=== PATIENT | female | born 1955 | race Two or more races ===

== ENCOUNTER 2023-05-22 21:11 | Inpatient (IN) | payer BC, OTHER ==
[~2023-05-22] VITALS: Ht 165.1 cm; Wt 148.1 kg
[2023-05-22] MEDS ORDERED: SODIUM CHLORIDE 0.9% 1,000 ML IV ONE (21:45)
[2023-05-22] MEDS ORDERED: ONDANSETRON HCL 4 MG/2 ML VIAL IM ONE (21:45)
[2023-05-22] MEDS ORDERED: HYDROmorphone HCL 2 MG/ML VL/or syr IM ONE (21:45)
[2023-05-22 21:48] LABS: Basophils # (auto) 0 10 ^3/uL (0-0.2); Basophils % (auto) 0.2 % (0.0-2.0); Eosinophils # (auto) 0 10 ^3/uL (0-0.8); Lymphocytes # (auto) 0.3 10 ^3/uL (0.4-5.4); Mean Corpuscular Hemoglobin 25.3 pg (28.0-32.0); Monocytes # (auto) 0.4 10 ^3/uL (0-1.3); Neutrophils # (auto) 8.9 10 ^3/uL (1.6-8.6); Red Blood Cells 5.83 10^6/uL (4.0-5.20); White Blood Cell 9.6 10^3/uL (4.4-10.8)
[2023-05-22 21:50] LABS: Hemoglobin 14.7 g/dL (12.2-16.2); Lymphocytes % (auto) 3.4 % (10.0-50.0); Monocytes % (auto) 4.2 % (0.0-12.0); Neutrophils % (auto) 92.2 % (37.0-80.0); Red Cell Distribution Width 16.8 % (11.8-14.3)
[2023-05-22] MEDS ORDERED: ACETAMINOPHEN 500 MG TAB PO ONE (22:00)
[2023-05-22 22:05] LABS: Albumin 3.4 g/dL (3.4-5.0); Calcium 8.4 mg/dL (8.5-10.1)
[2023-05-22 22:09] LABS: BUN/Creatinine Ratio 12.2 (10.0-20.0); Bilirubin, Total 1.9 mg/dL (0.2-1.0); Total Protein 7.8 g/dL (6.4-8.2)
[2023-05-22] MEDS ORDERED: IOHEXOL 350 MG/ML 100ML IJ ONE (22:32)
[2023-05-22 22:51] LABS: COVID19 ANTIGEN SOFIA FIA NEGATIVE (NEGATIVE)
[2023-05-22 23:16] LABS: Large Platelets FEW; Platelet Estimate Decreased
[2023-05-22] MEDS ORDERED: KETOROLAC TROMETH 60MG/2ML VIAL IM ONE (23:30)
[2023-05-23] MEDS ORDERED: PANTOPRAZOLE 40 MG/10 ML VIAL INJ IV ONE (02:15)
[2023-05-23] MEDS ORDERED: SODIUM CHLORIDE 0.9% 3,250 ML IV ONE (02:15)
[2023-05-23] MEDS ORDERED: ACETAMINOPHEN 325 MG TAB PO PRN (02:15)
[2023-05-23] MEDS ORDERED: HEPARIN DRIP/D5W 100UNITS/ML 250 ML IV SCH (02:15)
[2023-05-23] MEDS ORDERED: HEPARIN SODIUM (PORCINE) 5000 UNITS/ML 1ML VIAL IV ONE (02:15)
[2023-05-23] MEDS ORDERED: NITROGLYCERIN 0.4 MG SL TAB SL PRN ×2 (02:15→05:15)
[2023-05-23] MEDS ORDERED: ASPirin 81 mg TAB PO ONE (02:15)
[2023-05-23] MEDS ORDERED: ATORVASTATIN 20 MG TAB PO ONE (02:15)
[2023-05-23 02:35] LABS: Blood Alcohol < 3.0 mg/dL (<10)
[2023-05-23 02:39] LABS: Cholesterol 112 mg/dL (< 200); HDL Cholesterol 64 mg/dL (40-59); LDL Cholesterol 49 mg/dL (< 100); Triglycerides 73 mg/dL (< 150)
[2023-05-23 03:00] VITALS: PULSE 103; RESP 17; O2SAT 94
[2023-05-23 03:44] LABS: INR 1.36 (0.9-1.15); Partial Thromboplastin Time 37.9 SEC (24.5-34.5)
[2023-05-23] MEDS ORDERED: POTASSIUM CHL 20MEQ/100ML 100 ML IV ONE (04:01)
[2023-05-23] MEDS ORDERED: ONDANSETRON HCL 4 MG/2 ML VIAL IV PRN (05:15)
[2023-05-23] MEDS ORDERED: MORPHINE SULFATE INJ 2 MG/ml SYRG IV PRN (05:15)
[2023-05-23] MEDS: SODIUM CHLOR 0.9% PF (SALINE LOCK) 10ML VIAL/SYR IV SCH ×3 (06:00→22:18)
[2023-05-23 07:40] VITALS: PULSE 99; RESP 24; O2SAT 93
[2023-05-23] MEDS: ACETAMINOPHEN 325 MG TAB PO PRN (08:25)
[2023-05-23] MEDS: POTASSIUM CHL 20MEQ/100ML 100 ML IV SCH ×2 (08:29→08:30)
[2023-05-23 09:25] LABS: Urine Bacteria NONE SEEN /hpf (None Seen); Urine Blood 2+ /uL (Negative); Urine Clarity Clear (Clear); Urine Color Yellow (Yellow); Urine Mucus FEW (None Seen); Urine Protein, UAD 2+ (Negative); Urine WBC 7 /hpf (0 - 5)
[2023-05-23 09:33] LABS: Urine Specific Gravity > 1.050 (1.001-1.035)
[2023-05-23 09:39] LABS: Alcohol, Urine < 3.0 mg/dL (0-10); Amphetamine Screen, Urine NEGATIVE (NEGATIVE); Barbiturate Scree,Urine NEGATIVE (NEGATIVE); Benzodiazephine Screen, Urine NEGATIVE (NEGATIVE); Cannabinoid Screen, Urine NEGATIVE (NEGATIVE); Cocaine Screen, Urine NEGATIVE (NEGATIVE); Opiate Scree,Urine NEGATIVE (NEGATIVE); Phencyclidine Screen, Urine NEGATIVE (NEGATIVE)
[2023-05-23] MEDS ORDERED: ASPirin 81 mg TAB PO SCH (10:00)
[2023-05-23] MEDS ORDERED: METOPROLOL TARTRATE 25 MG TAB PO SCH (10:00)
[2023-05-23] MEDS ORDERED: LISINOPRIL 10 MG TAB PO SCH (10:00)
[2023-05-23] MEDS: PIPERACILLIN-TAZOB 3.375GM 100 ML IV SCH ×2 (10:55→14:21)
[2023-05-23 13:11] LABS: Hepatitis B Surface Antibody Negative (Negative)
[2023-05-23 13:50] LABS: Hepatitis A Total Antibody Negative (Negative)
[2023-05-23 15:16] LABS: Hepatitis B Core Total AB Negative (Negative)
[2023-05-23 15:17] LABS: Hepatitis B Surface Antigen Negative (Negative); Hepatitis C Antibody Negative (Negative)
[2023-05-23] MEDS ORDERED: cefTRIAXone 1GM/50ML D5W 50 ML IV ONE (16:00)
[2023-05-23] MEDS ORDERED: metroNIDAZOLE 500MG/100ML 100 ML IV ONE (16:00)
[2023-05-23 19:30] VITALS: PULSE 95; RESP 13; O2SAT 96
[2023-05-23] MEDS ORDERED: VALS40TA2 PO (20:24)
[2023-05-23] MEDS ORDERED: DORZ2SOL18 EACHEYE (20:24)
[2023-05-23] MEDS ORDERED: ROSU20TA14 PO (20:24)
[2023-05-23] MEDS ORDERED: MELO-335 PO (20:24)
[2023-05-23] MEDS: ATORVASTATIN 20 MG TAB PO SCH (22:32)
[2023-05-23] MEDS: metroNIDAZOLE 500MG/100ML 100 ML IV SCH (23:36)
[2023-05-24] MEDS ORDERED: TEMAZEPAM 15 MG CAP PO ONE (00:45)
[2023-05-24 06:07] LABS: Basophils # (auto) 0 10 ^3/uL (0-0.2); Eosinophils # (auto) 0 10 ^3/uL (0-0.8); Hemoglobin 13.7 g/dL (12.2-16.2); Lymphocytes # (auto) 0.3 10 ^3/uL (0.4-5.4); Monocytes # (auto) 0.6 10 ^3/uL (0-1.3); Monocytes % (auto) 5.3 % (0.0-12.0); Red Cell Distribution Width 17.1 % (11.8-14.3)
[2023-05-24 06:11] LABS: Basophils % (auto) 0.2 % (0.0-2.0); Lymphocytes % (auto) 2.5 % (10.0-50.0); Mean Corpuscular Hemoglobin 25.5 pg (28.0-32.0); Mean Corpuscular Volume 79.7 fL (80.0-100.0); Neutrophils # (auto) 10.6 10 ^3/uL (1.6-8.6); White Blood Cell 11.5 10^3/uL (4.4-10.8)
[2023-05-24] MEDS: SODIUM CHLOR 0.9% PF (SALINE LOCK) 10ML VIAL/SYR IV SCH ×3 (06:17→22:16)
[2023-05-24 06:25] LABS: Albumin 2.9 g/dL (3.4-5.0); BUN/Creatinine Ratio 13.9 (10.0-20.0); Potassium 3.3 mmol/L (3.5-5.1)
[2023-05-24 08:00] VITALS: PULSE 97; RESP 14; O2SAT 96
[2023-05-24] MEDS: metroNIDAZOLE 500MG/100ML 100 ML IV SCH ×3 (08:17→23:11)
[2023-05-24] MEDS ORDERED: PANTOPRAZOLE 40 MG/10 ML VIAL INJ IV ONE (08:45)
[2023-05-24] MEDS: SOD CHL 0.9%/ KCL 20MEQ 1,000 ML IV SCH ×2 (08:45→18:51)
[2023-05-24] MEDS: cefTRIAXone 1GM/50ML D5W 50 ML IV SCH (09:00)
[2023-05-24] MEDS ORDERED: ASPirin 81 mg TAB PO SCH (10:00)
[2023-05-24] MEDS ORDERED: PANTOPRAZOLE 40 MG TAB PO SCH (10:00)
[2023-05-24] MEDS ORDERED: POTASSIUM CHL 20 Meq TABLET PO SCH ×2 (10:00)
[2023-05-24 19:50] VITALS: PULSE 78; RESP 20; O2SAT 100
[2023-05-24] MEDS: ATORVASTATIN 20 MG TAB PO SCH (22:14)
[2023-05-24 22:16] VITALS: BP 133/61; PULSE 97; RESP 18; TEMP 99.9; O2SAT 99
[2023-05-24] MEDS: ACETAMINOPHEN 325 MG TAB PO PRN (22:16)
[2023-05-24 22:17] VITALS: BP 133/61; PULSE 97; RESP 18; TEMP 99.9; O2SAT 99
[2023-05-25] VITALS (8 sets, daily range): BP systolic 94–167; BP diastolic 46–78; PULSE 61–96; RESP 16–54; TEMP 97.9–100.2; O2SAT 86–99
[2023-05-25] MEDS ORDERED: LATA0.008 EACHEYE (00:23)
[2023-05-25] MEDS: SOD CHL 0.9%/ KCL 20MEQ 1,000 ML IV SCH (01:07)
[2023-05-25] MEDS: SODIUM CHLOR 0.9% PF (SALINE LOCK) 10ML VIAL/SYR IV SCH ×3 (06:45→22:00)
[2023-05-25 08:02] LABS: Potassium 4.8 mmol/L (3.5-5.1)
[2023-05-25] MEDS ORDERED: ALBUTEROL SULF 2.5 MG/0.5ML(0.5%) NEB SOLN ONE (08:13)
[2023-05-25] MEDS: ACETAMINOPHEN 325 MG TAB PO PRN (08:13)
[2023-05-25 08:15] LABS: Albumin 2.4 g/dL (3.4-5.0); BUN/Creatinine Ratio 14.7 (10.0-20.0); Total Protein 6.4 g/dL (6.4-8.2)
[2023-05-25] MEDS ORDERED: ALBUTEROL SULF HFA 90MCG INH 200DOSE IN PRN (08:45)
[2023-05-25] MEDS: metroNIDAZOLE 500MG/100ML 100 ML IV SCH ×3 (09:16→23:56)
[2023-05-25] MEDS ORDERED: ALBUTEROL SULF 2.5 MG/0.5ML(0.5%) NEB SOLN NEB PRN (09:30)
[2023-05-25] MEDS ORDERED: IPRATROPIUM BROM 0.5 MG/2.5ML INH SOL NEB PRN (09:30)
[2023-05-25 09:38] LABS: Basophils # (auto) 0 10 ^3/uL (0-0.2); Eosinophils # (auto) 0 10 ^3/uL (0-0.8); Monocytes # (auto) 0.3 10 ^3/uL (0-1.3)
[2023-05-25 09:42] LABS: Basophils % (auto) 0.2 % (0.0-2.0); Eosinophils % (auto) 0.6 % (0.0-7.0); Hematocrit 44.1 % (36.0-46.0); Hemoglobin 13.9 g/dL (12.2-16.2); Lymphocytes # (auto) 0.4 10 ^3/uL (0.4-5.4); Lymphocytes % (auto) 5.2 % (10.0-50.0); Mean Corpuscular Hemoglobin 25.3 pg (28.0-32.0); Mean Corpuscular Hgb Conc. 31.6 g/dL (32.0-36.0); Mean Corpuscular Volume 80.1 fL (80.0-100.0); Monocytes % (auto) 3.4 % (0.0-12.0); Neutrophils # (auto) 6.7 10 ^3/uL (1.6-8.6); Neutrophils % (auto) 90.6 % (37.0-80.0); Red Blood Cells 5.51 10^6/uL (4.0-5.20); Red Cell Distribution Width 17.4 % (11.8-14.3); White Blood Cell 7.4 10^3/uL (4.4-10.8)
[2023-05-25] MEDS: PANTOPRAZOLE 40 MG/10 ML VIAL INJ IV SCH (13:36)
[2023-05-25] MEDS: cefTRIAXone 1GM/50ML D5W 50 ML IV SCH (13:36)
[2023-05-25] MEDS: D5W/SOD CHL 0.45% 1,000 ML IV SCH ×2 (13:39→19:30)
[2023-05-25] MEDS: ATORVASTATIN 20 MG TAB PO SCH (22:22)
[2023-05-26] VITALS (7 sets, daily range): BP systolic 118–141; BP diastolic 50–79; PULSE 82–98; RESP 18–22; TEMP 97.6–98.6; O2SAT 96–100
[2023-05-26] MEDS: D5W/SOD CHL 0.45% 1,000 ML IV SCH ×2 (05:30→16:31)
[2023-05-26] MEDS: SODIUM CHLOR 0.9% PF (SALINE LOCK) 10ML VIAL/SYR IV SCH ×3 (06:00→21:55)
[2023-05-26] MEDS: metroNIDAZOLE 500MG/100ML 100 ML IV SCH ×3 (08:28→23:07)
[2023-05-26] MEDS: PANTOPRAZOLE 40 MG/10 ML VIAL INJ IV SCH (11:21)
[2023-05-26] MEDS: cefTRIAXone 1GM/50ML D5W 50 ML IV SCH (11:21)
[2023-05-26 12:20] LABS: Mean Corpuscular Hgb Conc. 31.3 g/dL (32.0-36.0); White Blood Cell 9.3 10^3/uL (4.4-10.8)
[2023-05-26 12:22] LABS: Hemoglobin 12.8 g/dL (12.2-16.2); Mean Corpuscular Volume 79.9 fL (80.0-100.0); Red Blood Cells 5.13 10^6/uL (4.0-5.20); Red Cell Distribution Width 17.6 % (11.8-14.3)
[2023-05-26 12:26] LABS: Band Neutrophils % (manual) 0; Basophils % (manual) 0 (0.0-2.0); Blast Cells 0; Metamyelocytes % 0; Myelocytes % 0; Promyelocytes % 0
[2023-05-26 12:48] LABS: BUN/Creatinine Ratio 13.4 (10.0-20.0); Calcium 8.1 mg/dL (8.5-10.1); Potassium 3.4 mmol/L (3.5-5.1)
[2023-05-26 15:29] LABS: Eosinophils % (manual) 2 (0-7); Lymphocytes % (manual) 19 (10.0-50.0); Monocytes % (manual) 11 (0-12)
[2023-05-26 15:30] LABS: Platelet Estimate Decreased; Reactive Lymphocytes 2
[2023-05-26 15:32] LABS: Anisocytosis Moderate
[2023-05-26] MEDS: ATORVASTATIN 20 MG TAB PO SCH (21:54)
[2023-05-26] MEDS: ACETAMINOPHEN 325 MG TAB PO PRN (23:08)
[2023-05-27] VITALS (8 sets, daily range): BP systolic 124–146; BP diastolic 57–85; PULSE 70–84; RESP 18–21; TEMP 98.2–99.3; O2SAT 95–99
[2023-05-27] MEDS: D5W/SOD CHL 0.45% 1,000 ML IV SCH ×3 (01:30→23:33)
[2023-05-27] MEDS: SODIUM CHLOR 0.9% PF (SALINE LOCK) 10ML VIAL/SYR IV SCH ×3 (06:00→23:18)
[2023-05-27 08:29] LABS: Hemoglobin 13.1 g/dL (12.2-16.2); Mean Corpuscular Hgb Conc. 31.3 g/dL (32.0-36.0)
[2023-05-27 08:32] LABS: Mean Corpuscular Hemoglobin 25.3 pg (28.0-32.0); Mean Corpuscular Volume 80.7 fL (80.0-100.0); Red Cell Distribution Width 17.5 % (11.8-14.3); White Blood Cell 9.6 10^3/uL (4.4-10.8)
[2023-05-27 08:49] LABS: Band Neutrophils % (manual) 0; Basophils % (manual) 0 (0.0-2.0); Metamyelocytes % 0; Myelocytes % 0; Promyelocytes % 0; Reactive Lymphocytes 0
[2023-05-27] MEDS: metroNIDAZOLE 500MG/100ML 100 ML IV SCH ×3 (08:49→23:18)
[2023-05-27] MEDS: cefTRIAXone 1GM/50ML D5W 50 ML IV SCH (09:57)
[2023-05-27 11:56] LABS: Blast Cells 1; Eosinophils % (manual) 2 (0-7); Lymphocytes % (manual) 9 (10.0-50.0); Monocytes % (manual) 9 (0-12); Platelet Estimate Decreased
[2023-05-27 15:31] LABS: Albumin 2.5 g/dL (3.4-5.0); BUN/Creatinine Ratio 8.2 (10.0-20.0); Calcium 8.3 mg/dL (8.5-10.1); Potassium 3.5 mmol/L (3.5-5.1)
[2023-05-27 15:34] LABS: Bilirubin, Total 0.6 mg/dL (0.2-1.0); Total Protein 6.9 g/dL (6.4-8.2)
[2023-05-27] MEDS: ATORVASTATIN 20 MG TAB PO SCH (23:12)
[2023-05-28 05:15] VITALS: BP 144/79; PULSE 80; RESP 18; TEMP 99.4; O2SAT 98
[2023-05-28] MEDS: D5W/SOD CHL 0.45% 1,000 ML IV SCH (06:00)
[2023-05-28] MEDS: SODIUM CHLOR 0.9% PF (SALINE LOCK) 10ML VIAL/SYR IV SCH (06:04)
[2023-05-28 08:00] VITALS: PULSE 76; RESP 14; O2SAT 92
[2023-05-28] MEDS: cefTRIAXone 1GM/50ML D5W 50 ML IV SCH (08:38)
[2023-05-28] MEDS: metroNIDAZOLE 500MG/100ML 100 ML IV SCH (08:38)
[2023-05-28 09:00] VITALS: BP 147/76; PULSE 77; RESP 14; TEMP 98.3; O2SAT 94
[2023-05-28] MEDS ORDERED: METR-344 PO (11:35)
[2023-05-28] MEDS ORDERED: LACTCAP35 OR (11:35)
[2023-05-28] MEDS ORDERED: LEVO500T91 PO (11:35)
[2023-05-28] MEDS ORDERED: FUROSEMIDE 20 MG/2 ML VIAL IV ONE (12:15)
[2023-05-28 12:55] LABS: Basophils # (auto) 0 10 ^3/uL (0-0.2); Basophils % (auto) 0.1 % (0.0-2.0); Eosinophils # (auto) 0.2 10 ^3/uL (0-0.8); Eosinophils % (auto) 1.8 % (0.0-7.0); Hematocrit 43.3 % (36.0-46.0); Hemoglobin 13.1 g/dL (12.2-16.2); Lymphocytes # (auto) 1.4 10 ^3/uL (0.4-5.4); Lymphocytes % (auto) 15.6 % (10.0-50.0); Mean Corpuscular Hemoglobin 25.4 pg (28.0-32.0); Mean Corpuscular Hgb Conc. 30.3 g/dL (32.0-36.0); Mean Corpuscular Volume 83.8 fL (80.0-100.0); Monocytes # (auto) 1.3 10 ^3/uL (0-1.3); Neutrophils # (auto) 6.3 10 ^3/uL (1.6-8.6); Neutrophils % (auto) 68.5 % (37.0-80.0); Red Blood Cells 5.17 10^6/uL (4.0-5.20); Red Cell Distribution Width 17.6 % (11.8-14.3); White Blood Cell 9.1 10^3/uL (4.4-10.8)
[2023-05-28 13:11] LABS: Albumin 2.4 g/dL (3.4-5.0); Calcium 8.1 mg/dL (8.5-10.1); Magnesium 2.2 mg/dL (1.6-2.6); Potassium 3.3 mmol/L (3.5-5.1)
[2023-05-28 13:14] LABS: BUN/Creatinine Ratio 6.1 (10.0-20.0); Bilirubin, Total 0.5 mg/dL (0.2-1.0); Total Protein 6.9 g/dL (6.4-8.2)
[2023-05-28 13:31] VITALS: BP 158/8; PULSE 80; RESP 14; TEMP 98.6; O2SAT 97
[2023-05-28 13:54] VITALS: BP 133/81; PULSE 80; RESP 18; TEMP 36.8; O2SAT 97
== END 2023-05-28 14:20 | disposition home or self-care (01) | DRG 871 ==
LOC: EDBD 21:11 → ER 21:11 → TELE 05-23 05:10 → TELE-CENTR 05-24 21:52
PROVIDERS: ADMIT Internal Medicine; ATTEND Internal Medicine
DX: A41.51 Sepsis due to Escherichia coli [E. coli] (principal); I21.A1 Myocardial infarction type 2; J96.00 Acute respiratory failure, unspecified whether with hypoxia or hypercapnia; N17.0 Acute kidney failure with tubular necrosis; K57.32 Diverticulitis of large intestine without perforation or abscess without bleeding; Z68.43 Body mass index [BMI] 50.0-59.9, adult; A04.5 Campylobacter enteritis; D69.6 Thrombocytopenia, unspecified; Z20.822 Contact with and (suspected) exposure to COVID-19; R19.7 Diarrhea, unspecified; M19.90 Unspecified osteoarthritis, unspecified site; E66.01 Morbid (severe) obesity due to excess calories; K74.60 Unspecified cirrhosis of liver; I10 Essential (primary) hypertension; Z88.5 Allergy status to narcotic agent; R15.9 Full incontinence of feces
CPT/HCPCS: 36415; 71045; 74018; 76705; 80048; 80053; 80061; 80307; 80320; 81001; 82728; 83036; 83605; 83690; 83735; 83880; 84443; 84484; 85007; 85025; 85027; 85048; 85610; 85730; 86038; 86704; 86706; 86708; 86803; 86850; 86900; 86901; 87040; 87045; 87077; 87186; 87340; 87426; 87427; 87493; 93005; 93306; 96361; 96372; 96374; 96375; C9113; G0378; J0696; J1885; J2405; J2543; J3480; J3490